=== PATIENT | female | born 1940 | race Caucasian/White ===

== ENCOUNTER 2020-12-05 07:15 | Day surgery (SDC) | payer MEDICARE, OTHER ==
[~2020-12-05] VITALS: Ht 162.6 cm; Wt 88.6 kg
[2020-12-05] VITALS (9 sets, daily range): BP systolic 114–137; BP diastolic 70–85; PULSE 70–89; TEMP 98.1
[2020-12-05 08:21] LABS: HEMATOCRIT 43.9 % (37.0-47.0); MEAN CELL VOLUME 88 fl (80.0-100.0); MEAN CORPUSCULAR HEMOGLOBIN 30 pg (27.0-31.0); MEAN CORPUSCULAR HGB CONC 34 g/dl (33.0-37.0); MEAN PLATELET VOLUME 11.3 fl (7.4-10.4); PLATELET COUNT 169 K/mm3 (130-400); RED BLOOD COUNT 4.97 M/mm3 (4.10-5.30); REDCELL DISTRIBUTION WIDTH-CV 15.8 % (11.5-14.5)
[2020-12-05] MEDS ORDERED: ASPIRIN E.C. 8181 MG PO (08:21)
[2020-12-05 08:29] LABS: INR 1.1 (0.8-3.0); PROTHROMBIN TIME 12.1 SECONDS (9.7-12.8)
[2020-12-05 08:32] LABS: PARTIAL THROMBOPLASTIN TIME 30.6 SECONDS (26.0-37.0)
[2020-12-05 08:37] LABS: ALBUMIN 4.2 gm/dL (3.5-5.0); BILIRUBIN,TOTAL 0.6 mg/dL (0.0-1.0); CALCIUM 9.3 mg/dL (8.4-10.2); CREATININE, serum 0.66 (0.52-1.25); TOTAL PROTEIN 7.6 gm/dL (6.4-8.2)
[2020-12-05 09:13] LABS: MAGNESIUM 2.1 mg/dL (1.6-2.3)
--- NOTE | 2020-12-05 09:20 | NUR ---
SEE MERGE DOCUMENTATION FOR MEDICATION ADMINISTRATION TIMES AND INTRA/POST PROCEDURE SEDATION ASSESSMENTS.
--- NOTE | 2020-12-05 10:05 | NUR ---
pt to eu 12 via bed from record label intern. Pt is awake and alert, call light in reach, on monitor. TR band is on no signs of swelling or bleeding. HOB elevated, uses phone, sips on water
--- NOTE | 2020-12-05 11:00 | NUR ---
pt watches tv, lunch ordered. no c/o
[2020-12-05] MEDS ORDERED: ZEBETA 5MG5 MG PO (11:08)
[2020-12-05] MEDS ORDERED: LIPITOR 40MG TA40 MG PO (11:08)
[2020-12-05] MEDS ORDERED: FISH OIL 1000MG1 CAP PO (11:09)
[2020-12-05 11:17] LABS: CHOLESTEROL RISK RATIO 4.8
--- NOTE | 2020-12-05 12:00 | NUR ---
pt sat up in bed, ate lunch, no c/o, released air from band 2cc over 20 min with no bleeding or swelling to site, bandaid over site wrapped with coban for support
--- NOTE | 2020-12-05 13:00 | NUR ---
pt up in room, voided, pt c/o "soreness" to right forearm below elbow, area is warm and dry, CMS within normal range, area is larger than that on left forearm. candlemaking laborer called, [place] wrap with ice applied, Dr Gaffney here in hospital will come by and see pt Reviewed earlier discharge inst. 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
--- NOTE | 2020-12-05 13:30 | NUR ---
Dr Gaffney here with Elisha SMITH to observe right forearm, orders to con't [place] wrap today and ice for pt, and pt may be discharged, pt discharged with these orderes via w/c to car at 1345, iv d'cd intact earlier, discharge papers and supplies sent with pt
== END 2020-12-05 13:45 | disposition home or self-care (01) ==
LOC: COL.CAR 07:15
PROVIDERS: Internal Medicine Cardiovascular Disease
DX: I25.10 Atherosclerotic heart disease of native coronary artery without angina pectoris (principal); R94.39 Abnormal result of other cardiovascular function study; I48.0 Paroxysmal atrial fibrillation; I42.1 Obstructive hypertrophic cardiomyopathy; G45.4 Transient global amnesia
CPT/HCPCS: C1769; J1644; J2250; J3010; Q9967

== ENCOUNTER 2021-08-31 14:47 | Emergency (ER) | payer MEDICARE, OTHER ==
[~2021-08-31] VITALS: Ht 157.5 cm; Wt 90.9 kg
[~2021-08-31 14:47] MED LIST: ASPIRIN E.C. 8181 MG PO; FISH OIL 1000MG1 CAP PO; LIPITOR 40MG TA40 MG PO; ZEBETA 5MG5 MG PO
[2021-08-31 14:56] VITALS: TEMP 97.6
[2021-08-31 15:20] LABS: BASO # 0.1 K/mm3 (0.0-0.2); BASO % 0.9 % (0.0-2.0); EOS # 0.2 K/mm3 (0.0-0.7); GRAN # 4.4 K/mm3 (1.4-6.5); GRAN % 63.6 % (42.2-75.2); HEMATOCRIT 45.3 % (37.0-47.0); HEMOGLOBIN 14.8 g/dl (12.5-16.0); LYMPH # 1.5 K/mm3 (1.2-3.4); LYMPH % 21.4 % (20.0-51.0); MEAN CELL VOLUME 94 fl (80.0-100.0); MEAN CORPUSCULAR HEMOGLOBIN 31 pg (27-31); MEAN CORPUSCULAR HGB CONC 33 g/dl (33.0-37.0); MEAN PLATELET VOLUME 11.5 fl (7.4-10.4); MONO # 0.8 K/mm3 (0.1-0.6); MONO % 10.8 % (1.7-9.3); PLATELET COUNT 166 K/mm3 (130-400); RED BLOOD COUNT 4.84 M/mm3 (4.10-5.30); REDCELL DISTRIBUTION WIDTH-CV 15.9 % (11.5-14.5)
[2021-08-31 15:25] LABS: INR 1.1 (0.8-3.0); PROTHROMBIN TIME 12.3 SECONDS (9.7-12.8)
[2021-08-31 15:33] LABS: BILIRUBIN,TOTAL 0.8 mg/dL (0.2-1.2); CALCIUM 9.3 mg/dL (8.4-10.2); CREATININE, serum 0.81 mg/dL (0.57-1.11); POTASSIUM 4.1 mmol/L (3.5-4.5); TOTAL PROTEIN 7.3 gm/dL (6.2-8.1)
[2021-08-31 17:39] VITALS: BP 155/93; PULSE 71
== END 2021-08-31 17:39 | disposition home or self-care (01) ==
LOC: COL.ER 14:47
PROVIDERS: Personal Emergency Response Attendant
DX: G45.9 Transient cerebral ischemic attack, unspecified (principal); Z28.310 Unvaccinated for COVID-19
CPT/HCPCS: Q9967